=== PATIENT | male | born 1995 | race Caucasian/White ===

== ENCOUNTER 2020-12-06 16:33 | Emergency (ER) | payer OTHER, SELFPAY ==
[2020-12-06 16:50] VITALS: BP 132/95; PULSE 78; RESP 20; TEMP 36.4; O2SAT 98
--- NOTE | 2020-12-06 17:12 | ED.DENTAL ---
HPI - Dental/Oral General Chief complaint: Dental/Oral Stated complaint: Dental/Oral Source: patient Mode of arrival: ambulatory Limitations: no limitations History of Present Illness HPI Narrative: Patient is a 25-year-old male who presents complaining of dental pain. Patient reports bridge to lower mouth for the past 7 years, that fell out approximately 2 weeks ago. Patient reports pain x4 to 5 days. He is seen at [facility] and has an appointment but not until next month. He reports taking Aleve with moderate relief. He denies other complaints at this time. MD Complaint: tooth pain Related Data Allergies Allergy/AdvReac Type Severity Reaction Status Date / Time No Known Allergies Allergy Verified 12/06/20 17:04 Review of Systems Review of Systems: Narrative: CONSTITUTIONAL: Denies fever, chills, or sweats. EYES: Denies visual changes, redness, or discharge. ENT: Denies rhinorrhea, congestion, sore throat, or otalgia. Reports lower dental pain CARDIOVASCULAR: Denies chest pain, palpitations, or edema. RESPIRATORY: Denies cough or dyspnea. GASTROINTESTINAL: Denies abdominal pain, nausea, vomiting, or diarrhea. GENITOURINARY: Denies dysuria or hematuria. SKIN: Denies rash or itching. MUSCULOSKELETAL: Denies back pain, joint pain, or myalgia. NEUROLOGIC: Denies headache, numbness, dizziness, or weakness. PSYCHIATRIC: Denies anxiety or depression. [facility] Past Medical History Medical History (Updated 12/06/20 @ 17:22 by KAVEH Gorman) No significant family history Surgical History Surgical History (Updated 12/06/20 @ 17:17 by KAVEH Gorman) No significant past surgical history Family History Family History (Updated 12/06/20 @ 17:17 by KAVEH Gorman) Other No significant family history Social History Social History (Updated 12/06/20 @ 17:17 by KAVEH Gorman) Smoking status: Current every day smoker Tobacco type: cigarettes and e-cigarettes/vaping Alcohol intake: current Substance use: never Living arrangements: with family Occupation/Education: occupation Comments At the time of signature, I have reviewed and agree with nursing past medical, surgical, social, and family history unless otherwise noted. Please see nursing chart for further information. There is no relevant family history pertinent to the presenting complaint. Exam Narrative: Exam Narrative: GENERAL: Well-appearing, well-nourished, and in no acute distress. HEAD: Normocephalic, atraumatic. EYES: EOMI. No redness or drainage. Conjunctiva are normal. ENT: Mucous membranes pink and moist. Missing lower dental bridge CHEST: No respiratory distress. HEART: Regular rate and rhythm. EXTREMITIES: Normal range of motion. No edema. SKIN: Warm, dry, no rash. NEURO: No focal deficits. Alert and oriented x3. Gait steady. PSYCH: Normal affect. No signs of depression or anxiety. Course Vital Signs Vital signs: Vital Signs Temperature 36.4 C 12/06/20 16:50 Pulse Rate 78 12/06/20 16:50 Respiratory Rate 20 12/06/20 16:50 Blood Pressure 132/95 H 12/06/20 16:50 Pulse Oximetry 98 12/06/20 16:50 Temperature 36.4 C 12/06/20 16:50 Pulse Rate 78 12/06/20 16:50 Respiratory Rate 20 12/06/20 16:50 Blood Pressure 132/95 H 12/06/20 16:50 Pulse Oximetry 98 12/06/20 16:50 Reviewed. Patient has been instructed to follow-up with his PCP regarding his blood pressure. MDM - Dental/Oral MDM Narrative Medical decision making narrative: Patient has missing dental bridge and pain. Patient has appointment scheduled for next month. Patient most likely has dental infection, antibiotic started at this time. Patient instructed on pain management. Patient is stable for discharge to home with outpatient follow-up as discussed. Differential Diagnosis Differential diagnosis: Likely toothache Medical Records Attestation: I reviewed the patient's medical records. Critical Car
== END 2020-12-06 17:44 | disposition home or self-care (01) ==
PROVIDERS: Emergency Provider Nurse Practitioner; PCP Internal Medicine Geriatric Medicine
DX: K08.89 Other specified disorders of teeth and supporting structures (principal); F17.200 Nicotine dependence, unspecified, uncomplicated
CPT/HCPCS: 99213; G0463

== ENCOUNTER 2022-08-29 10:49 | Emergency (ER) | payer OTHER, SELFPAY ==
[2022-08-29 10:55] VITALS: BP 151/94; PULSE 83; RESP 14; TEMP 36.6; O2SAT 99
[2022-08-29 11:03] VITALS: BP 151/94; PULSE 83; RESP 14; TEMP 36.6; O2SAT 99
--- NOTE | 2022-08-29 11:08 | ED.DENTAL ---
HPI - Dental/Oral General Chief complaint: Dental/Oral Stated complaint: infection in gum line Time Seen by Provider: 08/29/22 11:08 Source: patient Mode of arrival: ambulatory History of Present Illness HPI Narrative: 27 y/o male presented for c/o right lower jaw pain for 2 days. Endorses mild swelling to the gum line and pain to tooth with pressing down on the top of the tooth. Remote history of root canal at the site. Taking Aleve and cold compress for pain. Denies n/v/d/f/c. Patient follows with [facility] and was unable to get emergency appointment today. MD Complaint: tooth pain Related Data Allergies Allergy/AdvReac Type Severity Reaction Status Date / Time No Known Allergies Allergy Verified 08/29/22 11:03 Review of Systems Review of Systems: CONSTITUTIONAL: Denies body aches, fever, chills ENT: Denies rhinorrhea, congestion, sore throat, or otalgia. Reports dental pain CARDIOVASCULAR: Denies chest pain, palpitations RESPIRATORY: Denies cough or dyspnea. SKIN: Denies rash, itching, or wounds. MUSCULOSKELETAL: Denies myalgia. NEUROLOGIC: Denies headache, numbness, tingling, or weakness. [facility] Past Medical History Medical History (Reviewed 08/29/22 @ 11: by Any Renteria APRN) No significant family history Surgical History Surgical History No significant past surgical history Family History Family History (Reviewed 08/29/22 @ 11: by Any Renteria APRN) Other No significant family history Social History Social History Smoking status: Current every day smoker Tobacco type: cigarettes and e-cigarettes/vaping Alcohol intake: current Substance use: never Comments At time of signature, I have reviewed and agree with nursing past medical, surgical, social and family history unless otherwise noted. Please see nursing chart for further information. There is no relevant family history pertinent to the presenting complaint Exam Narrative: GENERAL: Appears in pain; no acute distress. HEAD: Normocephalic, atraumatic. EYES: EOMI. No redness or drainage. Conjunctivae normal. ENT: Dental pain location of #29, mild gum swelling; tender with palpation to the crown, and right lower mandible; missing teeth #24,25 (from trauma per pt) Mucous membranes pink and moist. TMs normal bilaterally. Throat normal. Uvula midline. NECK: Normal AROM. No lymphadenopathy. CHEST: Clear to auscultation. HEART: Regular rate and rhythm SKIN: Warm, dry, no rash. Normal skin turgor. Course Course Emergency Course: Patient is aware of diagnosis, understands and agrees to treatment plan. Anticipatory guidance given. Patient agrees to follow-up as directed and is aware of reasons to seek care at the emergency department. Portions of this record may have been created with voice recognition software Level of Care: Express Care Visit Vital Signs Vital signs: Vital Signs Temperature 98 F 08/29/22 10:55 Pulse Rate 83 08/29/22 10:55 Respiratory Rate 14 08/29/22 10:55 Blood Pressure 151/94 H 08/29/22 10:55 Pulse Oximetry 99 08/29/22 10:55 Oxygen Delivery Room Air 08/29/22 10:55 Temperature 98 F 08/29/22 11:03 Pulse Rate 83 08/29/22 11:03 Respiratory Rate 14 08/29/22 11:03 Blood Pressure 151/94 H 08/29/22 11:03 Pulse Oximetry 99 08/29/22 11:03 Oxygen Delivery Room Air 08/29/22 11:03 MDM - Dental/Oral MDM Narrative Medical decision making narrative: There are no focal signs of space occupying lesions that are compromising to the airway; Patient is non-toxic appearing. The floor of the mouth is soft with no signs of Kevin's Angina; no induration below mandible, no neck pain. Patient is without trismus or drooling and able to swallow secretions. Patient is felt appropriate for discharge home with dental follow up. Differential Diagno
== END 2022-08-29 11:24 | disposition home or self-care (01) ==
PROVIDERS: Emergency Provider Nurse Practitioner Family
DX: K08.89 Other specified disorders of teeth and supporting structures (principal); F17.210 Nicotine dependence, cigarettes, uncomplicated
CPT/HCPCS: 99213; G0463